=== PATIENT | male | born 1985 | race African-American/Black ===

== ENCOUNTER 2016-07-28 22:18 | Emergency (ER) | payer OTHER ==
[~2016-07-28] VITALS: Ht 167.6 cm; Wt 74.8 kg
[~2016-07-28 22:18] MED LIST: ALBU0.63 NEB; PRED50TA PO; PROAIR HFA8.5 GM INH; VENTOLIN HFA18 GM INH
[2016-07-28 23:10] VITALS: BP 174/96
[2016-07-28] MEDS ORDERED: BUPIVACAINE 0.5% 50 ML VIAL. IJ ONE (23:55)
[2016-07-29] MEDS ORDERED: HYDR-971 PO (01:17)
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
--- NOTE | 2016-07-29 07:50 | RAD ---
FINGER(S) RIGHT History:post-reduction Comparison: Exam earlier the same day Findings:3 views attention to the fifth digit of the right hand are submitted. There is now adequate alignment of the fifth proximal interphalangeal joint with adjacent soft tissue swelling. There is a small ossific body near the distal aspect of the fifth proximal phalanx although appears corticated, acute fracture not favored. Impression: 1.There is now adequate alignment of the fifth proximal interphalangeal joint.
--- NOTE | 2016-07-29 07:57 | RAD ---
FINGER(S) RIGHT History:5th finger dislocation Comparison: None Findings:3 views right hand with attention to the fifth digit are submitted. The fifth middle phalanx is posteriorly subluxed relative to the proximal phalanx by approximately one half shaft width with adjacent soft tissue swelling, no acute fracture identified. There is some bony deformity of the distal aspect of the fifth metacarpal likely due to sequela of old fracture. Impression: 1.There is subluxation at the level of the fifth proximal interphalangeal joint, middle phalanx subluxed posteriorly relative to the proximal phalanx with adjacent soft tissue swelling.
== END 2016-07-29 01:40 | disposition home or self-care (01) ==
LOC: ER 22:18
DX: S63.286A Dislocation of proximal interphalangeal joint of right little finger, initial encounter (principal); I10 Essential (primary) hypertension; J45.909 Unspecified asthma, uncomplicated; X58.XXXA Exposure to other specified factors, initial encounter; Y93.89 Activity, other specified; Y92.89 Other specified places as the place of occurrence of the external cause; Y99.8 Other external cause status
CPT/HCPCS: 26770; 73140; 99284-25

== ENCOUNTER 2016-08-09 09:13 | Emergency (ER) | payer OTHER ==
[~2016-08-09] VITALS: Ht 167.6 cm; Wt 75.7 kg
[~2016-08-09 09:13] MED LIST changes: +HYDR-971 PO
[2016-08-09 09:38] VITALS: BP 149/100
[2016-08-09] MEDS ORDERED: IPRATRPIUM/ALBUTEROL 0.5/2.5MG 3 ML NEBU. NEB ONE (09:45)
[2016-08-09] MEDS ORDERED: PREDNISONE 20 MG TABLET PO ONE (09:45)
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
[2016-08-09] MEDS ORDERED: PRED50TA PO (10:35)
[2016-08-09] MEDS ORDERED: ALBU2.5V14 NEB (10:35)
[2016-08-09] MEDS ORDERED: CETI10TA16 PO (10:35)
== END 2016-08-09 10:41 | disposition home or self-care (01) ==
LOC: ER 09:13
DX: J45.901 Unspecified asthma with (acute) exacerbation (principal); I10 Essential (primary) hypertension
CPT/HCPCS: 94250; 94640; 99284; J7512; J7620

== ENCOUNTER 2016-09-21 03:19 | Emergency (ER) | payer OTHER ==
[~2016-09-21] VITALS: Ht 170.2 cm; Wt 77.1 kg
[~2016-09-21 03:19] MED LIST changes: +ALBU2.5V14 NEB; +CETI10TA16 PO
[2016-09-21 03:25] VITALS: BP 123/73
[2016-09-21] MEDS ORDERED: DIPHTH,PERTUSS(ACELL),TET TOX 0.5 ML DISP.SYRIN. VAX IM ONE (03:45)
[2016-09-21] MEDS ORDERED: NAPROXEN 250 MG TABLET PO ONE (03:45)
[2016-09-21] MEDS ORDERED: LIDOCAINE 1% / SOD BICARB 8.4% 20 ML VIAL. IJ ONE (03:45)
[2016-09-21] MEDS ORDERED: OXYCODONE/APAP 5/325 TABLET. PO ONE (04:00)
[2016-09-21] MEDS ORDERED: NAPR250T2 PO (06:36)
[2016-09-21] MEDS ORDERED: CEPH-264 PO (06:36)
[2016-09-21] MEDS ORDERED: CEPHALEXIN 250 MG CAPSULE. PO ONE (06:45)
--- NOTE | 2016-09-21 07:17 | RAD ---
Left hand radiographs History: Laceration. Comparison: None. Findings: PA, lateral, and oblique views of the left hand. No acute fracture or dislocation is identified. There is a some radiodensity seen involving the lumbar aspect of the hand, may represent gauze material, but cannot exclude a radiopaque foreign body. Impression: 1. Radiodensity involving the palmar aspect of the hand. 2. This could represent material with blood, but cannot exclude radiopaque foreign body. Recommend clinical correlation.
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
== END 2016-09-21 06:43 | disposition home or self-care (01) ==
LOC: ER 03:19
DX: S61.412A Laceration without foreign body of left hand, initial encounter (principal); J45.909 Unspecified asthma, uncomplicated; F12.10 Cannabis abuse, uncomplicated; W26.8XXA Contact with other sharp object(s), not elsewhere classified, initial encounter; Y93.89 Activity, other specified; Y92.89 Other specified places as the place of occurrence of the external cause; Y99.8 Other external cause status
CPT/HCPCS: 12001; 73130; 90471; 90715; 99284-25

== ENCOUNTER 2017-12-21 01:59 | Emergency (ER) | payer SELFPAY, OTHER ==
[2017-12-21] MEDS: IPRATRPIUM/ALBUTEROL 0.5/2.5MG 3 ML NEBU. NEB (02:54)
[2017-12-21] MEDS: predniSONE 20 MG TABLET PO (03:09)
== END 2017-12-21 03:56 | disposition home or self-care (01) ==
LOC: ER 01:59
DX: J45.901 Unspecified asthma with (acute) exacerbation (principal); I10 Essential (primary) hypertension
CPT/HCPCS: 94640; 99283; J7512; J7620

== ENCOUNTER 2017-12-24 17:52 | Emergency (ER) | payer SELFPAY ==
[2017-12-24] MEDS: IV NORMAL SALINE 1000ML BAG 1,000 ML IV (18:04)
[2017-12-24] MEDS: methylPREDNISolone SOD SUCC PF 125 MG/2 ML VIAL. IV (18:15)
[2017-12-24] MEDS: IPRATRPIUM/ALBUTEROL 0.5/2.5MG 3 ML NEBU. NEB (18:20)
[2017-12-24 18:48] LABS: ADD MAN DIFF? NO
[2017-12-24 18:50] LABS: BASO % 1 % (0-3); EOS # 0.9 x10^3/uL (0.0-0.7); EOS % 13 % (0-3); HEMATOCRIT 45.9 % (39.0-53.0); HEMOGLOBIN 16.1 g/dL (13.0-17.5); LYMPH # 1.7 x10^3/uL (1.0-4.8); LYMPH % 24 % (24-48); MEAN CORPUSCULAR HEMOGLOBIN 29 pg (25-35); MEAN CORPUSCULAR HGB CONC 35 g/dL (31-37); MEAN CORPUSCULAR VOLUME 84 fL (79-100); MONO # 0.4 x10^3/uL (0.0-1.1); MONO % 6 % (0-9); NEUT # 3.9 x10^3uL (1.8-7.7); NEUT % 56 % (31-73); PLATELET COUNT 237 x10^3/uL (140-400); RED BLOOD COUNT 5.45 x10^6/uL (4.30-5.70)
[2017-12-24 19:00] LABS: ANION GAP 7 (6-14); BLOOD UREA NITROGEN 14 mg/dL (8-26); BUN/CREATININE RATIO 11 (6-20); CALCIUM 8.8 mg/dL (8.5-10.1); CARBON DIOXIDE 26 mmol/L (21-32); CHLORIDE 106 mmol/L (98-107); CREATININE 1.3 mg/dL (0.7-1.3); GFR 77.9; GLUCOSE 86 mg/dL (70-99); POTASSIUM 3.7 mmol/L (3.5-5.1); SODIUM 139 mmol/L (136-145)
[2017-12-24 19:05] LABS: ALBUMIN/GLOBULIN RATIO 1.2 (1.0-1.7); ALK PHOS 45 U/L (46-116); ALT (SGPT) 37 U/L (16-63); AST (SGOT) 33 U/L (15-37); TOTAL BILIRUBIN 0.5 mg/dL (0.2-1.0); TOTAL PROTEIN 7.3 g/dL (6.4-8.2)
== END 2017-12-24 20:30 | disposition home or self-care (01) ==
LOC: ER 17:52
DX: J45.901 Unspecified asthma with (acute) exacerbation (principal); J18.9 Pneumonia, unspecified organism
CPT/HCPCS: 36415; 71046; 80053; 85025; 94640; 96374; 99284; 99285-25; J2930; J7030; J7620

== ENCOUNTER 2018-02-11 11:42 | Emergency (ER) | payer OTHER ==
[~2018-02-11] VITALS: Ht 167.6 cm; Wt 77.1 kg
[~2018-02-11 11:42] MED LIST changes: +AZIT1PAC PO; +BUDE10.2 IH; +CEPH-264 PO; +NAPR250T6 PO; +PRED-220 PO; +PRED20TA PO
[2018-02-11 12:15] VITALS: BP 144/78
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
[2018-02-11] MEDS ORDERED: HYDR-971 PO (14:13)
== END 2018-02-11 14:35 | disposition home or self-care (01) ==
LOC: ER 11:42
DX: S62.302A Unspecified fracture of third metacarpal bone, right hand, initial encounter for closed fracture (principal); J45.909 Unspecified asthma, uncomplicated; Y04.2XXA Assault by strike against or bumped into by another person, initial encounter; Y93.89 Activity, other specified; Y92.89 Other specified places as the place of occurrence of the external cause; Y99.8 Other external cause status
CPT/HCPCS: 73130; 99284